=== PATIENT | female | born 1945 | race Caucasian/White ===

== ENCOUNTER 2019-08-23 17:16 | Inpatient (IN) | payer MEDICARE ==
[~2019-08-23] VITALS: Ht 162.6 cm; Wt 130.6 kg
--- NOTE | 2019-08-23 17:45 | NUR ---
AMY ON UNIT TO SEE PATIENT. NEW ORDERS RECEIVED AND ACKNOWLEDGED AT THIS TIME. ON UNIT AND NOTIFIED OF CONSULT WRITTEN ON ORDERS BUT STATES CONSULT IS CANCELLED FOR PULMONOLOGY. PATIENT RESTING IN BED WITH EYES OPEN, ATTENTION TOWARD TELEVISION. NO DISTRESS.
--- NOTE | 2019-08-23 17:57 | NUR ---
WAITING FOR ORDERS TO BE VERIFIED BY PHARMACY.
[2019-08-23] MEDS ORDERED: DEPAKOTE ER250 MG PO (18:16)
[2019-08-23] MEDS ORDERED: DEPAKOTE500 MG PO (18:17)
[2019-08-23] MEDS ORDERED: BAYER CHEWABLE81 MG PO (18:17)
[2019-08-23] MEDS ORDERED: FLUTICASONE PRO16 GM NASAL (18:18)
[2019-08-23] MEDS ORDERED: BENZTROPINE ME0.5 MG PO (18:18)
[2019-08-23] MEDS ORDERED: SYNTHROID25 MCG PO (18:18)
[2019-08-23] MEDS ORDERED: CARBIDOPA-LEVO1 EACH PO (18:19)
[2019-08-23] MEDS ORDERED: AVAPRO75 MG PO (18:19)
[2019-08-23] MEDS ORDERED: VISTARIL25 MG PO (18:23)
[2019-08-23] MEDS ORDERED: CRESTOR20 MG PO (18:23)
[2019-08-23] MEDS ORDERED: XARELTO15 MG PO (18:24)
[2019-08-23] MEDS ORDERED: RISPERDAL1 MG PO (18:27)
[2019-08-23] MEDS ORDERED: MAG-OX 400 MG400 MG PO (18:27)
[2019-08-23 18:43] VITALS: BP 147/57
[2019-08-23 19:36] LABS: HEMOGLOBIN 10.2 g/dL (12-16); LYMPHOCYTES 35.6 % (15-50); MCH 31.6 pg (26.0-34.0); MCV 92.9 fL (80.0-100.0); MEAN PLATELET VOLUME 8.8 fL (7.4-10.4); NEUTROPHILS 54.8 % (40-80); PLATELET COUNT 181 10x3/uL (130-400); RBC 3.23 10x6/uL (4.00-5.40); RDW 14.3 % (11.5-14.5); WBC 3.5 10x3/uL (4.8-10.8)
[2019-08-23 19:47] LABS: APTT 49.1 SECONDS (22.8-39.4); INR 1.54 (0.85-1.17); PROTIME 18.4 SECONDS (11.6-15.0)
[2019-08-23 19:48] LABS: D-DIMER-QUANTITATIVE 0.42 ug/mLFEU (0.20-0.54)
[2019-08-23 20:35] LABS: ALBUMIN 2.6 g/dL (3.4-5.0); ANION GAP 9.6 mmol/L (8-16); BILIRUBIN - TOTAL 0.54 mg/dL (0.2-1.3); CALCIUM 8.6 mg/dL (8.5-10.1); CARBON DIOXIDE 29.4 mmol/L (21.0-32.0); CREATININE - SERUM 0.9 mg/dL (0.6-1.3); PROTEIN - SERUM 5.5 g/dL (6.4-8.2)
[2019-08-23 21:40] VITALS: BP 148/71
[2019-08-24 01:10] VITALS: BP 198/78
[2019-08-24 06:49] LABS: HEMATOCRIT 33.1 % (36.0-48.0); HEMOGLOBIN 10.9 g/dL (12-16); MCH 31.1 pg (26.0-34.0); MCHC 32.9 g/dL (31.0-37.0); MCV 94.6 fL (80.0-100.0); MEAN PLATELET VOLUME 9.6 fL (7.4-10.4); PLATELET COUNT 160 10x3/uL (130-400); RDW 14.1 % (11.5-14.5)
[2019-08-24 07:00] LABS: WBC 2.3 10x3/uL (4.8-10.8)
[2019-08-24 07:01] LABS: ALBUMIN 2.7 g/dL (3.4-5.0); BILIRUBIN - TOTAL 0.62 mg/dL (0.2-1.3); CALCIUM 9.5 mg/dL (8.5-10.1); CARBON DIOXIDE 27.2 mmol/L (21.0-32.0); CREATININE - SERUM 0.9 mg/dL (0.6-1.3); PROTEIN - SERUM 6.4 g/dL (6.4-8.2)
[2019-08-24 07:03] LABS: ANION GAP 10.7 mmol/L (8-16); POTASSIUM - SERUM 4.9 mmol/L (3.5-5.1)
[2019-08-24 11:01] VITALS: BP 186/88
--- NOTE | 2019-08-24 12:53 | NUR ---
PT CHECKED FOR INCONTINENCE AND CHANGED, LINENS CHANGED ALSO. REPOSITIONED FOR MEALS. ASSISTED IN TRYING TO EAT AND DRINK.
[2019-08-24 14:19] VITALS: Ht 162.6 cm; Wt 130.6 kg
[2019-08-24 14:19] LABS: LYMPHOCYTES 36 % (15-50); MONOCYTES 3 % (2-11); NEUTROPHILS 56 % (40-80); PLATELET ESTIMATE NORMAL
--- NOTE | 2019-08-24 15:53 | NUR ---
PT WITH LEGS HANGING OUT OF BED. ASSISTED BACK, PT NOT AWARE OF WHY SHE WAS DOING IT. BED ALARM IN PLACE, MONITOR AT DESK IN USE NOW.
--- NOTE | 2019-08-24 15:59 | NUR ---
[facility] CALLED AND ASKED WHETHER PT'S DENTURES MADE TRIP OR NOT. STATES SHE HARDLY EVER WEARS THEM SO NOT SENT WITH.
--- NOTE | 2019-08-24 19:49 | NUR ---
EVENING ROUNDS COMPLETE. PT LAYING IN BED, BED ALARM ON, NO SIGNS OF DISTRESS. PT DENIES ANY PAIN OR NEEDS AT THIS TIME. CL IN REACH, BED IN LOWEST POSITION.
[2019-08-24 20:09] VITALS: BP 137/62
[2019-08-25 06:54] LABS: ALBUMIN 2.8 g/dL (3.4-5.0); ANION GAP 10.9 mmol/L (8-16); BILIRUBIN - TOTAL 0.47 mg/dL (0.2-1.3); CALCIUM 9.1 mg/dL (8.5-10.1); CARBON DIOXIDE 28.8 mmol/L (21.0-32.0); POTASSIUM - SERUM 4.7 mmol/L (3.5-5.1); PROTEIN - SERUM 5.9 g/dL (6.4-8.2)
[2019-08-25 07:14] LABS: LYMPHOCYTES 22.6 % (15-50); MCH 32.4 pg (26.0-34.0); MCHC 34.6 g/dL (31.0-37.0); MCV 93.5 fL (80.0-100.0); MEAN PLATELET VOLUME 9.6 fL (7.4-10.4); NEUTROPHILS 72.9 % (40-80); PLATELET COUNT 132 10x3/uL (130-400); RBC 4.17 10x6/uL (4.00-5.40); RDW 14.4 % (11.5-14.5)
[2019-08-25 07:25] LABS: HEMOGLOBIN 13.5 g/dL (12-16); WBC 3.3 10x3/uL (4.8-10.8)
[2019-08-25 08:51] VITALS: BP 173/88
--- NOTE | 2019-08-25 09:55 | NUR ---
PHARMACY CALLED AGAIN FOR AVAPRO AND SINEMET. THEY STATE SINEMET IS COMING FROM ANOTHER PHARMACY AND AVAPRO THEY WILL BRING RIGHT NOW. VERBALIZED UNDERSTANDING.
--- NOTE | 2019-08-25 10:00 | NUR ---
PT INCONTINENT OF URINE. COMPLETE LINEN CHANGE DONE. RIGHT AC 20G IV FLUSHED WITH 10CC OF NS AND SL. WILL CONTINUE TO MONITOR.
[2019-08-25 12:14] VITALS: BP 172/76
--- NOTE | 2019-08-25 12:15 | NUR ---
PT REFUSED LUNCH TRAY. PT STATES "I DON'T FEEL LIKE EATING."
[2019-08-25 16:51] VITALS: BP 122/85
--- NOTE | 2019-08-25 18:15 | NUR ---
I have reviewed this patient and I concur with the Shift Assessment completed by the Licensed Practical Nurse today this shift.
[2019-08-26 06:36] LABS: ALBUMIN 2.8 g/dL (3.4-5.0); ANION GAP 10.1 mmol/L (8-16); BILIRUBIN - TOTAL 0.43 mg/dL (0.2-1.3); CALCIUM 9.6 mg/dL (8.5-10.1); CARBON DIOXIDE 28.5 mmol/L (21.0-32.0); MAGNESIUM - SERUM 2.3 mg/dL (1.8-2.4); POTASSIUM - SERUM 4.6 mmol/L (3.5-5.1); PROTEIN - SERUM 6.3 g/dL (6.4-8.2)
[2019-08-26 06:37] LABS: CREATININE - SERUM 1.4 mg/dL (0.6-1.3)
[2019-08-26 07:35] LABS: HEMATOCRIT 31.5 % (36.0-48.0); HEMOGLOBIN 10.5 g/dL (12-16); LYMPHOCYTES 24.3 % (15-50); MCH 31.7 pg (26.0-34.0); MCHC 33.3 g/dL (31.0-37.0); MCV 95.2 fL (80.0-100.0); MEAN PLATELET VOLUME 9.5 fL (7.4-10.4); NEUTROPHILS 65.4 % (40-80); PLATELET COUNT 185 10x3/uL (130-400); RBC 3.31 10x6/uL (4.00-5.40); RDW 14.5 % (11.5-14.5); WBC 5.8 10x3/uL (4.8-10.8)
--- NOTE | 2019-08-26 14:18 | NUR ---
Nutrition Follow-up: Pt in droplet isolation; covid-19 +. Nursing reports pt not eating/drinking well. Diet: Cardiac Wt: 288# (08/23) Last BM: 08/23 per chart Labs noted: Glu 109, Alb 2.8 Meds noted: Pepcid, electrolyte protocol -Encourage PO intake and honor food preferences within diet restrictions. -Offer nutrition supplements. -Pt may benefit from an appetite stimulant. -Monitor wt. -RD following.
--- NOTE | 2019-08-26 19:30 | NUR ---
PT IN BED, AAO X 1, RESP EVEN AND UNLABORED. NO DISTRESS NOTED, CL IN REACH, SR UP X 2.
[2019-08-26 20:00] VITALS: BP 153/84
[2019-08-27] VITALS: BP 113/67
--- NOTE | 2019-08-27 02:30 | NUR ---
PT CLEANED AND DRYED AT THIS TIME, PT INCONTINENT OF BLADDER. PT CALL LIGHT IN REACH, SR UP X 2.
[2019-08-27 04:00] VITALS: BP 138/62
[2019-08-27 04:01] LABS: HEMATOCRIT 30.9 % (36.0-48.0); HEMOGLOBIN 10.2 g/dL (12-16); MCH 31.2 pg (26.0-34.0); MCV 94.5 fL (80.0-100.0); NEUTROPHILS 61.9 % (40-80); PLATELET COUNT 168 10x3/uL (130-400); RBC 3.27 10x6/uL (4.00-5.40); RDW 14.4 % (11.5-14.5)
[2019-08-27 04:03] LABS: WBC 4.2 10x3/uL (4.8-10.8)
[2019-08-27 04:10] LABS: ALBUMIN 2.6 g/dL (3.4-5.0); ANION GAP 9.9 mmol/L (8-16); BILIRUBIN - TOTAL 0.42 mg/dL (0.2-1.3); CALCIUM 8.8 mg/dL (8.5-10.1); CARBON DIOXIDE 28.4 mmol/L (21.0-32.0); CREATININE - SERUM 1.2 mg/dL (0.6-1.3); MAGNESIUM - SERUM 2.3 mg/dL (1.8-2.4); POTASSIUM - SERUM 4.3 mmol/L (3.5-5.1); PROTEIN - SERUM 5.8 g/dL (6.4-8.2)
--- NOTE | 2019-08-27 09:28 | NUR ---
PT HEART RATE BRADYING DOWN TO 37 AND LOWER. CALLED RAPID PER PROTOCOL. V/S OTHERWISE STABLE. HALFWAY CSENT PAPERWORK CONFIRMING DNR. WILL CNT. TO MONITOR. CL IN REACH,S RX2.
--- NOTE | 2019-08-27 11:21 | NUR ---
PT RESTING COMFORTABLY. HR STILL LOW. CL IN REACH,S RX2.
[2019-08-27 12:57] VITALS: BP 154/72
--- NOTE | 2019-08-27 13:11 | NUR ---
I have reviewed this patient and I concur with the Shift Assessment completed by the Licensed Practical Nurse today this shift.
--- NOTE | 2019-08-27 19:15 | NUR ---
PT IN BED, AAO X 1, PT CONFUSED AT TIMES, PT RESP EVEN AND UNLABORED. NO DISTRESS NOTED, CL IN REACH, SR UP X 2. PT CLEANED AND TURNED AT THIS TIME.
[2019-08-27 19:18] VITALS: BP 140/58
--- NOTE | 2019-08-28 03:12 | NUR ---
I have reviewed this patient and I concur with the Shift Assessment completed by the Licensed Practical Nurse today this shift.
[2019-08-28 03:59] VITALS: BP 148/59
[2019-08-28 04:57] LABS: HEMATOCRIT 32.3 % (36.0-48.0); HEMOGLOBIN 10.7 g/dL (12-16); LYMPHOCYTES 47.4 % (15-50); MCH 31.8 pg (26.0-34.0); MCHC 33.1 g/dL (31.0-37.0); MCV 96.1 fL (80.0-100.0); MEAN PLATELET VOLUME 9.7 fL (7.4-10.4); NEUTROPHILS 43.4 % (40-80); PLATELET COUNT 184 10x3/uL (130-400); RBC 3.36 10x6/uL (4.00-5.40); RDW 14.6 % (11.5-14.5); WBC 3.8 10x3/uL (4.8-10.8)
[2019-08-28 05:18] LABS: ALBUMIN 2.5 g/dL (3.4-5.0); ANION GAP 5.9 mmol/L (8-16); BILIRUBIN - TOTAL 0.51 mg/dL (0.2-1.3); CALCIUM 8.4 mg/dL (8.5-10.1); CARBON DIOXIDE 31.2 mmol/L (21.0-32.0); CREATININE - SERUM 1.2 mg/dL (0.6-1.3); MAGNESIUM - SERUM 2.4 mg/dL (1.8-2.4); POTASSIUM - SERUM 4.1 mmol/L (3.5-5.1); PROTEIN - SERUM 5.5 g/dL (6.4-8.2)
--- NOTE | 2019-08-28 08:26 | MORECARE ---
CASE MANAGEMENT DISCHARGE SUMMARY PATIENT: CORNELIUS VELÁSQUEZ UNIT: [id number] ADM DATE: 08/23/19 AGE: 74 : 45 SEX: F ROOM/BED: D.2130 AUTHOR: SEYMOUR SNOW PHYSICIAN: REFERRING PHYSICIAN: ANGELA SANCHEZ MD DATE OF SERVICE: 08/28/19 Discharge Plan Patient Name: CORNELIUS VELÁSQUEZ [facility] [facility] 1945 Planned Disposition: Anticipated Discharge Date: Discharge Date: Expected LOS: Initial Reviewer: [email or web address] Initial Review Date: 08/23/2019 Generated: 08/28/19 9:26 am External Providers External Provider: OTHER-OTHER Next Contact Date: Service Request Date: Service Type: Resolution: Reviewer: Comments: Patient Name: CORNELIUS VELÁSQUEZ Page [phone] at 0826 All edits/amendments must be made on the electronic document DICTATION DATE: 08/28/19825 DUSTING AND BRUSHING MACHINE OPERATOR: ESVIN 08/28/19825 RPT#: [id number] DC DATE: STATUS: ADM IN [facility] [address] [place] [address] END OF REPORT
--- NOTE | 2019-08-28 08:35 | MORECARE ---
CASE MANAGEMENT DISCHARGE SUMMARY PATIENT: CORNELIUS VELÁSQUEZ UNIT: [id number] ADM DATE: 08/23/19 AGE: 74 : 45 SEX: F ROOM/BED: D.2130 AUTHOR: SEYMOUR SNOW PHYSICIAN: REFERRING PHYSICIAN: ANGELA SANCHEZ MD DATE OF SERVICE: 08/28/19 Discharge Plan Patient Name: CORNELIUS VELÁSQUEZ Facility: [facility]:[place] : 1945 Planned Disposition: Anticipated Discharge Date: Discharge Date: Expected LOS: Initial Reviewer: [email or web address] Initial Review Date: 08/23/2019 Generated: 08/28/19 9:34 am Comments DCP- Discharge Planning Updated by [email or web address]: Khushbu Fry on 08/28/19 7:[address] CM CALLED [facility] AT [phone] AND SPOKE WITH MARIELA FOR UPDATE. FAXED CLINICAL UPDATE TO [facility] AT [phone]. Last DP export: 08/28/19 7:26 a Patient Name: CORNELIUS VELÁSQUEZ Page [phone] at 0835 All edits/amendments must be made on the electronic document DICTATION DATE: 08/28/19834 SAFETY SITTER: ESVIN 08/28/19834 RPT#: [id number] DC DATE: STATUS: ADM IN [facility] [address] [place] [address] END OF REPORT
--- NOTE | 2019-08-28 08:42 | MORECARE ---
CASE MANAGEMENT DISCHARGE SUMMARY PATIENT: CORNELIUS VELÁSQUEZ UNIT: [id number] ADM DATE: 08/23/19 AGE: 74 : 45 SEX: F ROOM/BED: D.2130 AUTHOR: EDYDOC PHYSICIAN: REFERRING PHYSICIAN: ANGELA SANCHEZ MD DATE OF SERVICE: 08/28/19 Discharge Plan Patient Name: CORNELIUS VELÁSQUEZ Facility: [facility]:[place] : 1945 Planned Disposition: Anticipated Discharge Date: Discharge Date: Expected LOS: Initial Reviewer: [email or web address] Initial Review Date: 08/23/2019 Generated: 08/28/19 9:42 am Comments DCP- Discharge Planning Updated by [email or web address]: Khushbu Fry on 08/28/19 7:[address] Patient Name: CORNELIUS VELÁSQUEZ Admission Status: Elective Accout number: [id number] Admission Date: 08-23-2019 : 1945 Admission Diagnosis:OTHER VIRAL PNEUMONIA Attending: ANGELA MAN Current LOS: 5 Anticipated DC Date: Planned Disposition: Primary Insurance: MEDICARE A & B Discharge Planning Comments: CM unable meet with patient to complete initial dc planning assessment. CM called [place] healthcare proxy at [phone] and educated on the CM role and verbal consent given to complete assessment. Patient is a resident at [facility] [phone].JG verbal consent to return to nursing facility at discharge. Patient, and Krystin agree that this is a safe discharge plan. Transportation provider at discharge will be EMS . CM will continue to follow and will assist as needed with dc plans/needs. Director It: Khushbu Fry DCP- Discharge Planning Updated by [email or web address]: Khushbu Fry on 08/28/19 7:[address] CM CALLED [facility] AT [phone] AND SPOKE WITH MARIELA FOR UPDATE. FAXED CLINICAL UPDATE TO [facility] AT [phone]. DCPIA - Discharge Planning Initial Assessment Updated by [email or web address]: Khushbu Fry on 08/28/19 8:40 am * Is the patient Alert and Oriented? No * How many steps to enter\exit or inside your home? 0/0 * PCP [facility] * Pharmacy [facility] * Preadmission Environment [facility] * Facility Name [facility] * ADLs Total Dependent * List name and contact numbers for known caregivers / representatives who currently or will assist patient after discharge: Krystin Landeros [facility] Care Proxy * Verbal permission to speak to the caregivers and representatives has been obtained from the patient. N/A * Community resources currently utilized None * Additional services required to return to the preadmission environment? No * Can the patient safely return to the preadmission environment? Yes * Has this patient been hospitalized within the prior 30 days at any hospital? No Last DP export: 08/28/19 7:35 a Patient Name: CORNELIUS VELÁSQUEZ Page [phone] at 0842 All edits/amendments must be made on the electronic document DICTATION DATE: 08/28/19841 BRASS SORTER: ESVIN 08/28/19841 RPT#: [id number] DC DATE: STATUS: ADM IN [facility] [address] [place] [address] END OF REPORT
--- NOTE | 2019-08-28 09:15 | NUR ---
PT LETHARGIC AND CONFUSED. DID NOT WAKE UNTIL TECH AND I LIFTED HER UP IN BED. NONSENSICLE WORDS SPOKEN, WOULD NOT OPEN HER MOUTH TO EAT OR DRINK. UNABLE TO ADMINSITER PO MEDICATION. PT EASILY FALLS BACK TO SLEEP SOON SHE ISN'T BEING DIRECTLY MANIPULATED. WILL CNT. TO MONITOR. CL IN REACH, SRX2, BED ALARM ACTIVE WNL. PT CHANGED, LINNENS DRY.
--- NOTE | 2019-08-28 12:42 | NUR ---
PT LETHARGIC. HR STILL JOSE CARLOS, 39. LONG PAUSES BETWEEN BREATHS. DR AWARE. PT COMPINSATING AT THIS TIME. CL IN REACH, SRX2.
--- NOTE | 2019-08-28 15:09 | NUR ---
Nutrition Follow-up: COVID+, confused Diet: Cardiac PO intake: ~6% average x last 5 meals recorded Last BM: 08/26/19. Wt: 288# (08/24/19) Meds reviewed. Labs noted: BUN 42(H), GFR 46(L), Alb 2.5(L) Recommend continue current diet. Will add Ensure TID. Encouraged PO intake. MD may consider adding appetite stimulant. RD following.
--- NOTE | 2019-08-28 15:34 | NUR ---
DAUGHTER MARITZA CALLED FOR UPDATE, WHILE SPEAKING WITH DAUGHTER I BROUGHT UP HOSPICE A POTENTIAL OPTION, DAUGHTER AGREED. I THEN SPOKE WITH TAPPER SHANK FROM HER [facility], THEY BELIEVED HOSPICE WAS A GOOD OPTION WELL. SPOKE WITH ZULEMA REYES, SHE AGREED AND HOPSICE CONSULT WAS PLACED. CASE MANAGMENT NOTIFIED.
--- NOTE | 2019-08-28 15:48 | MORECARE ---
CASE MANAGEMENT DISCHARGE SUMMARY PATIENT: CORNELIUS VELÁSQUEZ UNIT: [id number] ADM DATE: 08/23/19 AGE: 74 : 45 SEX: F ROOM/BED: D.2130 AUTHOR: EDYDOC PHYSICIAN: REFERRING PHYSICIAN: ANGELA SANCHEZ MD DATE OF SERVICE: 08/28/19 Discharge Plan Patient Name: CORNELIUS VELÁSQUEZ Facility: [facility]:[place] : 1945 Planned Disposition: Anticipated Discharge Date: Discharge Date: Expected LOS: Initial Reviewer: [email or web address] Initial Review Date: 08/23/2019 Generated: 08/28/19 4:47 pm Comments DCP- Discharge Planning Updated by [email or web address]: Khushbu Fry on 08/28/19 7:[address] Patient Name: CORNELIUS VELÁSQUEZ Admission Status: Elective Accout number: [id number] Admission Date: 08-23-2019 : 1945 Admission Diagnosis:OTHER VIRAL PNEUMONIA Attending: ANGELA MAN Current LOS: 5 Anticipated DC Date: Planned Disposition: Primary Insurance: MEDICARE A & B Discharge Planning Comments: CM unable meet with patient to complete initial dc planning assessment. CM called [place] healthcare proxy at [phone] and educated on the CM role and verbal consent given to complete assessment. Patient is a resident at [facility] [phone].JG verbal consent to return to nursing facility at discharge. Patient, and Krystin agree that this is a safe discharge plan. Transportation provider at discharge will be EMS . CM will continue to follow and will assist as needed with dc plans/needs. Electroformer: Khushbu Fry DCP- Discharge Planning Updated by [email or web address]: Khushbu Fry on 08/28/19 7:[address] CM CALLED [facility] AT [phone] AND SPOKE WITH MARIELA FOR UPDATE. FAXED CLINICAL UPDATE TO [facility] AT [phone]. DCPIA - Discharge Planning Initial Assessment Updated by [email or web address]: Khushbu Fry on 08/28/19 8:40 am * Is the patient Alert and Oriented? No * How many steps to enter\exit or inside your home? 0/0 * PCP [facility] * Pharmacy [facility] * Preadmission Environment [facility] * Facility Name [facility] * ADLs Total Dependent * List name and contact numbers for known caregivers / representatives who currently or will assist patient after discharge: Krystin L[facility] Care Proxy * Verbal permission to speak to the caregivers and representatives has been obtained from the patient. N/A * Community resources currently utilized None * Additional services required to return to the preadmission environment? No * Can the patient safely return to the preadmission environment? Yes * Has this patient been hospitalized within the prior 30 days at any hospital? No Last DP export: 08/28/19 7:42 a Patient Name: CORNELIUS VELÁSQUEZ Page [phone] at 1548 All edits/amendments must be made on the electronic document DICTATION DATE: 08/28/191546 NETWORK CONSULTANT: ESVIN 08/28/19 1547 RPT#: [id number] DC DATE: STATUS: ADM IN [facility] [address] [place] [address] END OF REPORT
--- NOTE | 2019-08-28 17:42 | NUR ---
I have reviewed this patient and I concur with the Shift Assessment completed by the Licensed Practical Nurse today this shift.
--- NOTE | 2019-08-28 19:30 | NUR ---
PT IN BED, AAO X 1, RESP EVEN AND UNLABORED. NO DISTRESS NOTED, CL IN REACH, SR UP X 2.
[2019-08-28 19:53] VITALS: BP 147/72
--- NOTE | 2019-08-29 03:58 | NUR ---
I have reviewed this patient and I concur with the Shift Assessment completed by the Licensed Practical Nurse today this shift.
[2019-08-29 04:22] VITALS: BP 135/75
[2019-08-29 08:00] VITALS: BP 178/93
--- NOTE | 2019-08-29 09:40 | NUR ---
PT RESTING PEACEFULLY. TRIED MULTIPLE TIMES TO ROUSE HER, SHE REMAINED LETHARGIC AND ONLY MADE SOME INCROMPREHNSIBLE SOUNDS. WOULD NOT ROUSE TO TAKE MEDICATIONS OR EAT BREAKFAST OR DRINK WATER. CL IN REACH, SRX2. WILL CNT. TO MONITOR.
--- NOTE | 2019-08-29 10:22 | NUR ---
SPOKE WITH BERNARD AT [facility], SHE STATED THAT THEY WERE ABLE TO TAKE THE PT BACK IF SHE'S DISCHARGED WITH HOSPICE BUT PT WOULD NEED TO RETURN VIA AMBULANCE. LEATHA WALKER SPOKE TO FAMILY MEMEBER THAT STATED HE THINKS HOSPICE IS THE CORRECT DIRECTION. CONSULT PLACED.
[2019-08-29 12:23] VITALS: BP 145/55
--- NOTE | 2019-08-29 15:42 | NUR ---
I have reviewed this patient and I concur with the Shift Assessment completed by the Licensed Practical Nurse today this shift.
--- NOTE | 2019-08-29 17:53 | NUR ---
PT BECAME ALERT AND CONFUSED THROUGHOUT THE DAY. NO LONGER RESTING, SHE IS UP RIGHT IN BED FEEDING HERSELF SUPPER WITHOUT DIFFICULTY. ANSWERING PHONE CALLS AND TALKING TO OTHERS WITHOUT CONFUSION. NO COMPLAINTS OR CONCERNS, CLEANED AND DRIED AND PT FROM URINATION. CL IN REACH, SRX2, BABY MONITOR WROKING WNL.
--- NOTE | 2019-08-29 19:00 | NUR ---
ASSISTED PT TO BED WASHBURN AT HER REQUEST. SHE HAD A LARGE BOWEL MOVEMENT. SHE HAD BEEN INCONTINENT OF URINE. LINENS AND GOWN SATURATED. LINENS CHANGED AND SHE WAS CLEANED UP. SHE IS ALERT AND ORIENTED BUT FORGETFUL. GAVE HER ICE CREAM AND ICE WATER. SHE DENIES PAIN OR NEEDS. JETHRO ALARM ON. BED IS LOW AND CALL LIGHT IS WITHIN REACH.
[2019-08-29 20:00] VITALS: BP 142/60
--- NOTE | 2019-08-30 04:06 | NUR ---
I have reviewed this patient and I concur with the Shift Assessment completed by the Licensed Practical Nurse today this shift.
[2019-08-30 04:26] VITALS: BP 138/74
[2019-08-30 06:24] LABS: BASOPHILS 0 % (0-2); EOSINOPHILS 2.2 % (0-7); HEMATOCRIT 34.7 % (36.0-48.0); HEMOGLOBIN 11.2 g/dL (12-16); IMMATURE GRANULOCYTES 0.6 % (0-5); LYMPHOCYTES 45.3 % (15-50); MCH 30.9 pg (26.0-34.0); MCHC 32.3 g/dL (31.0-37.0); MCV 95.9 fL (80.0-100.0); MEAN PLATELET VOLUME 10.2 fL (7.4-10.4); MONOCYTES 11.9 % (2-11); PLATELET COUNT 162 10x3/uL (130-400); RBC 3.62 10x6/uL (4.00-5.40); RDW 14.4 % (11.5-14.5); WBC 3.6 10x3/uL (4.8-10.8)
[2019-08-30 06:56] LABS: ANION GAP 8.3 mmol/L (8-16); CALCIUM 8.5 mg/dL (8.5-10.1); CARBON DIOXIDE 29.7 mmol/L (21.0-32.0); MAGNESIUM - SERUM 2.1 mg/dL (1.8-2.4); PHOSPHOROUS 3.2 mg/dL (2.5-4.9)
[2019-08-30 08:21] VITALS: BP 179/74
--- NOTE | 2019-08-30 13:03 | NUR ---
PT CAN D/C HOME TOMORROW AM. FACILITY STATES IT WON'T BE ABLE TO GET HOSPICE IN FACILITY UNTIL SATURDAY.
--- NOTE | 2019-08-30 18:00 | NUR ---
I have reviewed this patient and I concur with the Shift Assessment completed by the Licensed Practical Nurse today this shift.
--- NOTE | 2019-08-30 18:20 | NUR ---
PT RESTED THORUGHOUT THE DAY. WAS UNABLE TO GIVE MORNING MEDS D/T BEING UNABLE TO ROUSE THE PT EVEN WITH PAINFUL STIMULI. SHE WOKE MOMENTARILY FOR DR. BEARD, THEN IMMEDIATLEY FELL BACK TO RESTING. AT SUPPER TIME PT ONCE AGAIN ROUSED FULLY, BECAME ALERT AND ORIENTED, REQUESTED COPIOUS AMOUNTS OF FOOD AND ACTED IF NOTHING WAS PHYSICALLY OR MENTALLY WRONG WITH HER. CURRENTLY FEEDING HERSLEF SUPPER WITH NO COMPLAINTS OR CONCERNS. CL IN REACH, SRX2. PLACED PUREWICK ON PT.
--- NOTE | 2019-08-30 19:54 | NUR ---
PT HAS BEEN SEEN PT IS CONFUSED BELIEVING I WORK AT HER NH,,,PT IS ALERT AND IS EATING AT THIS TIME BED IS LOW AND LOCKED MAINTAINING VISION OF THIS PT THROUGH MONITOR CALL LIGHT IN REACH AND PT DEMOSTRATED USE
--- NOTE | 2019-08-30 20:04 | MORECARE ---
CASE MANAGEMENT DISCHARGE SUMMARY PATIENT: CORNELIUS VELÁSQUEZ UNIT: [id number] ADM DATE: 08/23/19 AGE: 74 : 45 SEX: F ROOM/BED: D.2130 AUTHOR: SEYMOUR SNOW PHYSICIAN: REFERRING PHYSICIAN: ANGELA SANCHEZ MD DATE OF SERVICE: 08/30/19 Discharge Plan Patient Name: CORNELIUS VELÁSQUEZ Facility: [facility]:[place] : 1945 Planned Disposition: Anticipated Discharge Date: Discharge Date: Expected LOS: Initial Reviewer: [email or web address] Initial Review Date: 08/23/2019 Generated: 08/30/19 9:03 pm Comments DCP- Discharge Planning Updated by [email or web address]: Melisa Ruby on 08/30/19 7:[address] LATE ENTRY 08/29/19 CM notified of Hospice Consult after speaking with nursing staff they stated that Hospice had been out to evaluate and patient isn't GIP appropriate per [facility]. Nursing stated that Hospice had evaluated patient last night. Nursing also stated that [facility] had stated that they would not accept patient back until patient had a negative COVID test result. CM was able to look back through records to find out that patient was admitted from that facility already Covid positive. Patient was rescreened for Covid late 08/28/19. Test results came back 08/29/19 still positive. DCP- Discharge Planning Updated by [email or web address]: Khushbu Fry on 08/28/19 7:[address] Patient Name: CORNELIUS VELÁSQUEZ Admission Status: Elective Accout number: [id number] Admission Date: 08-23-2019 : 1945 Admission Diagnosis:OTHER VIRAL PNEUMONIA Attending: ANGELA MAN Current LOS: 5 Anticipated DC Date: Planned Disposition: Primary Insurance: MEDICARE A & B Discharge Planning Comments: CM unable meet with patient to complete initial dc planning assessment. CM called [facility] healthcare proxy at [phone] and educated on the CM role and verbal consent given to complete assessment. Patient is a resident at [facility] [phone].JG verbal consent to return to nursing facility at discharge. Patient, and Krystin agree that this is a safe discharge plan. Transportation provider at discharge will be EMS . CM will continue to follow and will assist as needed with dc plans/needs. Supervisor [place] Department: Khushbu Fry DCP- Discharge Planning Updated by [email or web address]: Khushbu Fry on 08/28/19 7:[address] CM CALLED [facility] AT [phone] AND SPOKE WITH MARIELA FOR UPDATE. FAXED CLINICAL UPDATE TO [facility] AT [phone]. DCPIA - Discharge Planning Initial Assessment Updated by [email or web address]: Khushbu Fry on 08/28/19 8:40 am * Is the patient Alert and Oriented? No * How many steps to enter\exit or inside your home? 0/0 * PCP [facility] * Pharmacy [facility] * Preadmission Environment [facility] * Facility Name [facility] * ADLs Total Dependent * List name and contact numbers for known caregivers / representatives who currently or will assist patient after discharge: [facility] * Verbal permission to speak to the caregivers and representatives has been obtained from the patient. N/A * Community resources currently utilized None * Additional services required to return to the preadmission environment? No * Can the patient safely return to the preadmission environment? Yes * Has this patient been hospitalized within the prior 30 days at any hospital? No Last DP export: 08/28/19 2:48 p Patient Name: CORNELIUS VELÁSQUEZ Page 72008 at 2004 All edits/amendments must be made on the electronic document DICTATION DATE: 08/30/192003 CUFF SLITTER: ESVIN 08/30/192003 RPT#: [id number] DC DATE: STATUS: ADM IN [facility] [address] [place] [address] END OF REPORT
--- NOTE | 2019-08-30 20:10 | MORECARE ---
CASE MANAGEMENT DISCHARGE SUMMARY PATIENT: CORNELIUS VELÁSQUEZ UNIT: [id number] ADM DATE: 08/23/19 AGE: 74 : 45 SEX: F ROOM/BED: D.2130 AUTHOR: EDYDOC PHYSICIAN: REFERRING PHYSICIAN: ANGELA SANCHEZ MD DATE OF SERVICE: 08/30/19 Discharge Plan Patient Name: CORNELIUS VELÁSQUEZ Facility: [facility]:[place] : 1945 Planned Disposition: Anticipated Discharge Date: Discharge Date: Expected LOS: Initial Reviewer: [email or web address] Initial Review Date: 08/23/2019 Generated: 08/30/19 9:10 pm Comments DCP- Discharge Planning Updated by [email or web address]: Melisa Ruby on 08/30/19 7:[address] CM called and spoke with [facility] and they stated that they could accept patient back in am. CM asked why it would have to be in the am. [facility] stated d/t patient going on Hospice they would not have a Hospice nurse until Saturday. Patient to discharge early am on Saturday and admit to hospice at [place]. This information was given to Dr. Cedeño and his PA along with nursing staff. Patient will need ambulance transfer back. and nursing will need to call report to [phone]. CM will continue to follow and assist as needed with d/c planning / needs. DCP- Discharge Planning Updated by [email or web address]: Melisa Ruby on 08/30/19 7:[address] LATE ENTRY 08/29/19 CM notified of Hospice Consult after speaking with nursing staff they stated that Hospice had been out to evaluate and patient isn't GIP appropriate per [facility]. Nursing stated that Hospice had evaluated patient last night. Nursing also stated that [facility] had stated that they would not accept patient back until patient had a negative COVID test result. CM was able to look back through records to find out that patient was admitted from that facility already Covid positive. Patient was rescreened for Covid late 08/28/19. Test results came back 08/29/19 still positive. DCP- Discharge Planning Updated by [email or web address]: Khushbu Fry on 08/28/19 7:[address] Patient Name: CORNELIUS VELÁSQUEZ Admission Status: Elective Accout number: [id number] Admission Date: 08-23-2019 : 1945 Admission Diagnosis:OTHER VIRAL PNEUMONIA Attending: ANGELA MAN Current LOS: 5 Anticipated DC Date: Planned Disposition: Primary Insurance: MEDICARE A & B Discharge Planning Comments: CM unable meet with patient to complete initial dc planning assessment. CM called Krystin [facility] proxy at [phone] and educated on the CM role and verbal consent given to complete assessment. Patient is a resident at [facility] [phone].JG verbal consent to return to nursing facility at discharge. Patient, and Krystin agree that this is a safe discharge plan. Transportation provider at discharge will be EMS . CM will continue to follow and will assist as needed with dc plans/needs. Ingredient Scaler Helper: Khushbu Fry DCP- Discharge Planning Updated by [email or web address]: Khushbu Fry on 08/28/19 7:[address] CM CALLED [facility] AT [phone] AND SPOKE WITH MARIELA FOR UPDATE. FAXED CLINICAL UPDATE TO [facility] AT [phone]. DCPIA - Discharge Planning Initial Assessment Updated by [email or web address]: Khushbu Fry on 08/28/19 8:40 am * Is the patient Alert and Oriented? No * How many steps to enter\exit or inside your home? 0/0 * PCP [facility] * Pharmacy [facility] * Preadmission Environment [facility] * Facility Name [facility] * ADLs Total Dependent * List name and contact numbers for known caregivers / representatives who currently or will assist patient after discharge: Krystin Landeros [facility] Care Proxy * Verbal permission to speak to the caregivers and representatives has been obtained from the patient. N/A * Community resources currently utilized None * Additional services required to return to the preadmission environment? No * Can the patient safely return to the preadmission environment? Yes * Has this patient been hospitalized within the prior 30 days at any hospital? No Last DP export: 08/30/19 7:04 p Patient Name: CORNELIUS VELÁSQUEZ Page [phone] at 2009 All edits/amendments must be made on the electronic document DICTATION DATE: 08/30/192009 LIBRARY SERVICES COORDINATOR: ESVIN 08/30/192009 RPT#: [id number] DC DATE: STATUS: ADM IN [facility] [address] [place] [address] END OF REPORT
[2019-08-30 21:31] VITALS: BP 170/70
[2019-08-31 04:48] VITALS: BP 166/54
--- NOTE | 2019-08-31 06:48 | NUR ---
I have reviewed this patient and I concur with the Shift Assessment completed by the Licensed Practical Nurse today this shift.
--- NOTE | 2019-08-31 09:41 | NUR ---
PT RESTING COMFORTABLY. HARD TO ROUSE, STERNUM RUB DID NOT WORK. THIS IS TYPICAL BEHAVIOR FOR PT EARLY IN THE MORNING. CL IN REACH, SRX2.
--- NOTE | 2019-08-31 12:28 | MORECARE ---
CASE MANAGEMENT DISCHARGE SUMMARY PATIENT: CORNELIUS VELÁSQUEZ UNIT: [id number] ADM DATE: 08/23/19 AGE: 74 : 45 SEX: F ROOM/BED: D.2130 AUTHOR: EDY,DOC PHYSICIAN: REFERRING PHYSICIAN: ANGELA SANCHEZ MD DATE OF SERVICE: 08/31/19 Discharge Plan Patient Name: CORNELIUS VELÁSQUEZ Facility: [facility]:[place] : 1945 Planned Disposition: Anticipated Discharge Date: Discharge Date: Expected LOS: Initial Reviewer: [email or web address] Initial Review Date: 08/23/2019 Generated: 08/31/19 1:28 pm Comments DCP- Discharge Planning Updated by [email or web address]: Khushbu Fry on 08/31/19 11:[address] Patient is currently in a MCR bed at [facility]. At discharge patient plans to return to [facility] under hospice care in a [facility]/long-term care bed and feels this is a safe discharge. CM spoke with [facility] who states they will be accepting pt today. Report can be called to any nurse at [phone].Transportation provider at discharge will be EMS . CM will continue to follow and will assist as needed with dc plans/needs. Khushbu Fry DCP- Discharge Planning Updated by [email or web address]: Melisa Ruby on 08/30/19 7:[address] CM called and spoke with [facility] and they stated that they could accept patient back in am. CM asked why it would have to be in the am. [place] stated d/t patient going on Hospice they would not have a Hospice nurse until Saturday. Patient to discharge early am on Saturday and admit to hospice at [place]. This information was given to Dr. Cedeño and his PA along with nursing staff. Patient will need ambulance transfer back. and nursing will need to call report to [phone]. CM will continue to follow and assist as needed with d/c planning / needs. DCP- Discharge Planning Updated by [email or web address]: Melisa Ruby on 08/30/19 7:[address] LATE ENTRY 08/29/19 CM notified of Hospice Consult after speaking with nursing staff they stated that Hospice had been out to evaluate and patient isn't GIP appropriate per [facility]. Nursing stated that Hospice had evaluated patient last night. Nursing also stated that [facility] had stated that they would not accept patient back until patient had a negative COVID test result. CM was able to look back through records to find out that patient was admitted from that facility already Covid positive. Patient was rescreened for Covid late 08/28/19. Test results came back 08/29/19 still positive. DCP- Discharge Planning Updated by [email or web address]: Khushbu Fry on 08/28/19 7:[address] Patient Name: CORNELIUS VELÁSQUEZ Admission Status: Elective Accout number: [id number] Admission Date: 08-23-2019 : 1945 Admission Diagnosis:OTHER VIRAL PNEUMONIA Attending: ANGELA MAN Current LOS: 5 Anticipated DC Date: Planned Disposition: Primary Insurance: MEDICARE A & B Discharge Planning Comments: CM unable meet with patient to complete initial dc planning assessment. CM called [facility] proxy at [phone] and educated on the CM role and verbal consent given to complete assessment. Patient is a resident at [facility] [phone].JG verbal consent to return to nursing facility at discharge. Patient, and Krystin agree that this is a safe discharge plan. Transportation provider at discharge will be EMS . CM will continue to follow and will assist as needed with dc plans/needs. Automation Tech: Khushbu Fry DCP- Discharge Planning Updated by [email or web address]: Khushbu Fry on 08/28/19 7:[address] CM CALLED [facility] AT [phone] AND SPOKE WITH MARIELA FOR UPDATE. FAXED CLINICAL UPDATE TO [facility] AT [phone]. DCPIA - Discharge Planning Initial Assessment Updated by [email or web address]: Khushbu Fry on 08/28/19 8:40 am * Is the patient Alert and Oriented? No * How many steps to enter\exit or inside your home? 0/0 * PCP [facility] * Pharmacy [facility] * Preadmission Environment [facility] * Facility Name [facility] * ADLs Total Dependent * List name and contact numbers for known caregivers / representatives who currently or will assist patient after discharge: Krystin Landeros Health Care Proxy * Verbal permission to speak to the caregivers and representatives has been obtained from the patient. N/A * Community resources currently utilized None * Additional services required to return to the preadmission environment? No * Can the patient safely return to the preadmission environment? Yes * Has this patient been hospitalized within the prior 30 days at any hospital? No Last DP export: 08/30/19 7:10 p Patient Name: CORNELIUS VELÁSQUEZ Page [id number] at 1228 All edits/amendments must be made on the electronic document DICTATION DATE: 08/31/19 1228 TODDLER TEACHER: ESVIN 08/31/19 1228 RPT#: [id number] DC DATE: STATUS: ADM IN [facility] [address] [place] [address] END OF REPORT
--- NOTE | 2019-08-31 16:12 | NUR ---
I have reviewed this patient and I concur with the Shift Assessment completed by the Licensed Practical Nurse today this shift.
--- NOTE | 2019-08-31 16:18 | NUR ---
PT ESCORTED OUT VIA AMBULANCE STRETCHER BACK TO MY DETENTION.
--- NOTE | 2019-09-02 09:53 | MORECARE ---
CASE MANAGEMENT DISCHARGE SUMMARY PATIENT: CORNELIUS VELÁSQUEZ UNIT: [id number] ADM DATE: 08/23/19 AGE: 74 : 45 SEX: F ROOM/BED: D.2130 AUTHOR: EDYDOC PHYSICIAN: REFERRING PHYSICIAN: ANGELA SANCHEZ MD DATE OF SERVICE: 09/02/19 Discharge Plan Patient Name: CORNELIUS VELÁSQUEZ Facility: [facility]:[place] : 1945 Planned Disposition: Anticipated Discharge Date: Discharge Date: 08/31/2019 Expected LOS: Initial Reviewer: [email or web address] Initial Review Date: 08/23/2019 Generated: 09/02/19 10:52 am Comments DCP- Discharge Planning Updated by [email or web address]: Khushbu Fry on 08/31/19 11:[address] Patient is currently in a MCR bed at [facility]. At discharge patient plans to return to [facility] under hospice care in a [facility]/long-term care bed and feels this is a safe discharge. CM spoke with [facility] who states they will be accepting pt today. Report can be called to any nurse at [phone].Transportation provider at discharge will be EMS . CM will continue to follow and will assist as needed with dc plans/needs. Khushbu Fry DCP- Discharge Planning Updated by [email or web address]: Melisa Ruby on 08/30/19 7:[address] CM called and spoke with [facility] and they stated that they could accept patient back in am. CM asked why it would have to be in the am. [place] stated d/t patient going on Hospice they would not have a Hospice nurse until Saturday. Patient to discharge early am on Saturday and admit to hospice at [place]. This information was given to Dr. Cedeño and his PA along with nursing staff. Patient will need ambulance transfer back. and nursing will need to call report to [phone]. CM will continue to follow and assist as needed with d/c planning / needs. DCP- Discharge Planning Updated by [email or web address]: Melisa Ruby on 08/30/19 7:[address] LATE ENTRY 7/18/20 CM notified of Hospice Consult after speaking with nursing staff they stated that Hospice had been out to evaluate and patient isn't GIP appropriate per [facility]. Nursing stated that Hospice had evaluated patient last night. Nursing also stated that [facility] had stated that they would not accept patient back until patient had a negative COVID test result. CM was able to look back through records to find out that patient was admitted from that facility already Covid positive. Patient was rescreened for Covid late 08/28/19. Test results came back 08/29/19 still positive. DCP- Discharge Planning Updated by [email or web address]: Khushbu Fry on 08/28/19 7:[address] Patient Name: CORNELIUS VELÁSQUEZ Admission Status: Elective Accout number: [id number] Admission Date: 08-23-2019 : 1945 Admission Diagnosis:OTHER VIRAL PNEUMONIA Attending: ANGELA MAN Current LOS: 5 Anticipated DC Date: Planned Disposition: Primary Insurance: MEDICARE A & B Discharge Planning Comments: CM unable meet with patient to complete initial dc planning assessment. CM called [facility] healthcare proxy at [phone] and educated on the CM role and verbal consent given to complete assessment. Patient is a resident at [facility] [phone].JG verbal consent to return to nursing facility at discharge. Patient, and Krystin agree that this is a safe discharge plan. Transportation provider at discharge will be EMS . CM will continue to follow and will assist as needed with dc plans/needs. Electronics Test Engineer: Khushbu Fry DCP- Discharge Planning Updated by [email or web address]: Khushbu Fry on 08/28/19 7:[address] CM CALLED [facility] AT [phone] AND SPOKE WITH MARIELA FOR UPDATE. FAXED CLINICAL UPDATE TO [facility] AT [phone]. DCPIA - Discharge Planning Initial Assessment Updated by [email or web address]: Khushbu Fry on 08/28/19 8:40 am * Is the patient Alert and Oriented? No * How many steps to enter\exit or inside your home? 0/0 * PCP [facility] * Pharmacy [facility] * Preadmission Environment [facility] * Facility Name [facility] * ADLs Total Dependent * List name and contact numbers for known caregivers / representatives who currently or will assist patient after discharge: Krystin Landeros Health Care Proxy * Verbal permission to speak to the caregivers and representatives has been obtained from the patient. N/A * Community resources currently utilized None * Additional services required to return to the preadmission environment? No * Can the patient safely return to the preadmission environment? Yes * Has this patient been hospitalized within the prior 30 days at any hospital? No Last DP export: 08/31/19 11:28 a Patient Name: CORNELIUS VELÁSQUEZ Page [phone] at 0953 All edits/amendments must be made on the electronic document DICTATION DATE: 09/02/19951 CLIENT SUCCESS DIRECTOR: ESVIN 09/02/19951 RPT#: [id number] DC DATE:08/31/19 STATUS: DIS IN [facility] [address] [place] [address] END OF REPORT
== END 2019-08-31 16:19 | DRG 177 ==
LOC: D.M2 17:16
PROVIDERS: Family Medicine; ADMIT Family Medicine Adult Medicine; ATTEND Family Medicine Adult Medicine
DX: U07.1 COVID-19 (principal); J12.89 Other viral pneumonia; J44.1 Chronic obstructive pulmonary disease with (acute) exacerbation; F20.0 Paranoid schizophrenia; I25.10 Atherosclerotic heart disease of native coronary artery without angina pectoris; E03.9 Hypothyroidism, unspecified; F32.9 Major depressive disorder, single episode, unspecified; I10 Essential (primary) hypertension; K21.9 Gastro-esophageal reflux disease without esophagitis; E78.5 Hyperlipidemia, unspecified; M81.0 Age-related osteoporosis without current pathological fracture